=== PATIENT | male | born 1980 | race Caucasian/White ===

== ENCOUNTER 2022-12-11 14:19 | Emergency (ER) | payer OTHER ==
[~2022-12-11] VITALS: Ht 177.8 cm; Wt 77.1 kg
[2022-12-11 14:38] VITALS: BP 151/77; PULSE 96; RESP 18; TEMP 98; O2SAT 100
[2022-12-11] MEDS ORDERED: DOXYCYCLINE 100 MG CAP PO SCH (15:55)
[2022-12-11] MEDS ORDERED: cefTRIAXone 500 MG in LIDOCAINE MPF 1% 1 ML IM ONE (15:55)
[2022-12-11] MEDS ORDERED: cefTRIAXone 500 MG VIAL ONE (16:09)
[2022-12-11] MEDS ORDERED: LIDOCAINE MPF 1% 5 ML ONE (16:09)
[2022-12-11 17:02] LABS: APPEARANCE,URINE CLOUDY (CLEAR); BILIRUBIN,URINE NEGATIVE (NEGATIVE); BLOOD, URINE TRACE-I (NEGATIVE); COLOR,URINE YELLOW (YELLOW); LEUKOCYTE ESTERASE ,URINE 1+ (NEGATIVE); NITRITE, URINE POSITIVE (NEGATIVE); PROTEIN,URINE TRACE (NEGATIVE); UGLUCOSE NEGATIVE (NEGATIVE); UROBILINOGEN,URINE 0.2 EU/dL (0.2 - 1)
[2022-12-11 17:10] VITALS: O2SAT 100
[2022-12-11 17:21] LABS: BACTERIA,URINE 3+ /HPF (None Seen); MUCUS,URINE 2+ /LPF (None Seen); RBC,URINE 0-5 /HPF (0-5); SQUAMOUS EPITHELIAL CELL,UR 4-10 (MOD) /LPF (0-3 (FEW)); TRICHOMONAS,URINE None Seen /HPF (None Seen); WBC,URINE 20-60 /HPF (0-5); YEAST,URINE None Seen /HPF (None Seen)
[2022-12-11 17:45] VITALS: BP 143/77; PULSE 96; RESP 18; TEMP 98; O2SAT 100
[2022-12-11] MEDS ORDERED: cephALEXin 500 MG CAP PO ONE (17:45)
[2022-12-11] MEDS ORDERED: CEPH-588 PO (17:50)
[2022-12-11] MEDS ORDERED: DOXY-690 PO (17:51)
== END 2022-12-11 17:45 | disposition home or self-care (01) ==
LOC: MED 14:19
DX: N39.0 Urinary tract infection, site not specified (principal); Z79.899 Other long term (current) drug therapy
CPT/HCPCS: 81001; 87086; 87491; 96372; 99283; J0696; J2001